=== PATIENT | female | born 1995 | race African-American/Black ===

== ENCOUNTER 2016-08-20 22:06 | Emergency (ER) | payer SELFPAY ==
[~2016-08-20] VITALS: Ht 154.9 cm; Wt 68.2 kg
[~2016-08-20 22:06] MED LIST: DIFLUCAN150 MG PO; METROGEL-VAGINA0.75% VG
[2016-08-20 22:08] VITALS: BP 122/63; TEMP 97
[2016-08-20 23:07] LABS: INFLUENZA B NEGATIVE
[2016-08-20 23:17] VITALS: PULSE 89
== END 2016-08-20 23:19 | disposition home or self-care (01) ==
LOC: COL.ER 22:06
PROVIDERS: Emergency Medicine
DX: B34.9 Viral infection, unspecified (principal); H10.9 Unspecified conjunctivitis

== ENCOUNTER 2021-10-18 16:46 | Emergency (ER) | payer MEDICAID ==
[~2021-10-18] VITALS: Ht 154.9 cm; Wt 81.8 kg
[2021-10-18 16:51] VITALS: TEMP 98
[2021-10-18] MEDS ORDERED: NAPROSYN500 MG PO (17:11)
[2021-10-18] MEDS ORDERED: AMOXICILLIN 8751 TAB PO (17:11)
[2021-10-18 17:28] VITALS: BP 148/62; PULSE 70
== END 2021-10-18 17:28 | disposition home or self-care (01) ==
LOC: COL.ER 16:46
DX: K04.7 Periapical abscess without sinus (principal); Z28.310 Unvaccinated for COVID-19
CPT/HCPCS: J1885

== ENCOUNTER 2021-11-12 06:58 | Emergency (ER) | payer MEDICAID ==
[~2021-11-12] VITALS: Ht 154.9 cm; Wt 84.1 kg
[~2021-11-12 06:58] MED LIST changes: +AMOXICILLIN 8751 TAB PO; +NAPROSYN500 MG PO
[2021-11-12 07:08] VITALS: BP 119/75; TEMP 97.9
[2021-11-12] MEDS ORDERED: NORCO 325 MG-51 TAB PO (07:29)
[2021-11-12] MEDS ORDERED: AMOXICILLIN 8751 TAB PO (07:29)
[2021-11-12 07:42] VITALS: PULSE 66
== END 2021-11-12 07:42 | disposition home or self-care (01) ==
LOC: COL.ER 06:58
DX: K04.7 Periapical abscess without sinus (principal); Z28.310 Unvaccinated for COVID-19